=== PATIENT | female | born 1995 | race Caucasian/White ===

== ENCOUNTER → 2020-05-01 13:10 | Observation (INO) | END | disposition home or self-care (01) | LOC: 1NENULAB | PROVIDERS: ADMIT Obstetrics & Gynecology; ATTEND Obstetrics & Gynecology ==

== ENCOUNTER 2020-09-02 07:36 | Inpatient (IN) ==
[2020-09-02] MEDS ORDERED: Metoclopramide 10 MG/2 ML VIAL IVP PRN (08:19)
[2020-09-02] MEDS ORDERED: *HR* Nalbuphine 10 MG/ML AMPUL IV PRN (08:19)
[2020-09-02] MEDS ORDERED: Naloxone 0.4 MG/ML INJ IVP PRN (08:19)
[2020-09-02] MEDS ORDERED: Lidocaine 1% 20 ML MDV INFILT PRN (08:19)
[2020-09-02] MEDS ORDERED: Azithromycin 500 MG in 0.9 % Sodium Chloride 250 ML IVPB PRN (08:19)
[2020-09-02] MEDS ORDERED: Famotidine 20 MG/2 ML VIAL IVP PRN (08:19)
[2020-09-02] MEDS ORDERED: Ondansetron 4 MG/2 ML VIAL IVP PRN (08:19)
[2020-09-02] MEDS ORDERED: Ringers Solution, Lactated 1,000 ML IVC SCH (08:30)
[2020-09-02] MEDS ORDERED: Ropivacaine/PF 0.2% 20 ML VIAL EP ONE (09:28)
[2020-09-02] MEDS ORDERED: *HR* FentaNYL (PF) 100 MCG/2 ML VIAL EP ONE (09:28)
[2020-09-02] MEDS ORDERED: EPHEDrine 50 MG/ML VIAL IVP PRN (09:28)
[2020-09-02] MEDS ORDERED: Epidural Premix (fent/bupiv) 110 ML EP SCH (09:30)
[2020-09-02] MEDS ORDERED: Ropivacaine/PF 0.2% 20 ML VIAL ONE (09:31)
[2020-09-02] MEDS ORDERED: *HR* FentaNYL (PF) 250 MCG/5 ML VIAL ONE (09:31)
[2020-09-02] MEDS: miSOPROStoL 25 MCG TABLET PO PRN ×2 (09:49→13:57)
[2020-09-02 10:10] LABS: Basophils # 0.1 K/mcL (0.0-0.2); Basophils % 0.8 %; Eosinophils # 0.1 K/mcL (0.0-0.6); Eosinophils % 0.5 %; Hematocrit 35.5 % (35.3-44.9); Hemoglobin 11.3 g/dL (11.5-15.4); Immature Granulocytes % 3.8 % (0-4); Lymphocytes # 2.1 K/mcL (0.6-4.6); Lymphocytes % 18.5 %; Mean Corpuscular HGB Conc 31.8 g/dL (31.6-35.5); Mean Corpuscular Hemoglobin 29.4 pg (28.0-33.3); Mean Corpuscular Volume 92.2 fL (83.0-100.0); Mean Platelet Volume 10.2 fL (9.4-12.4); Monocytes # 0.7 K/mcL (0.0-1.3); Monocytes % 5.8 %; Neutrophils # 7.9 K/mcL (1.6-8.9); Platelet Count 192 K/mcL (140-400); Red Blood Count 3.85 M/mcL (3.82-4.97); Red Cell Distribution Width 13.2 % (11.5-14.5); Segmented Neutrophils % 70.6 %; White Blood Count 11.2 K/mcL (4.3-11.1)
[2020-09-02 10:20] LABS: Amphetamine Screen,Urine Negative ng/mL (Cutoff=1000); Barbiturate Screen,Urine Negative ng/mL (Cutoff=200); Benzodiazepines Screen,Urine Negative ng/mL (Cutoff=200); Cannabinoid Screen,Urine Negative ng/mL (Cutoff = 50); Cocaine Screen,Urine Negative ng/mL (Cutoff= 300); Opiate Screen,Urine Negative ng/mL (Cutoff=300); Phencyclidine Screen,Urine Negative ng/mL (Cutoff=25)
[2020-09-02 17:30] LABS: Alanine Aminotransferase 11 Units/L (7-52); Aspartate Amino Transferase 20 Units/L (13-39); BUN/Creatinine Ratio 14 (6-26); Blood Urea Nitrogen 7 mg/dL (6-20); Lactate Dehydrogenase 215 Units/L (140-271); eGFR For African Americans > 60 (> 60); eGFR For Non-African Americans > 60 (> 60)
[2020-09-02 17:44] LABS: Bilirubin,Urine Negative (Negative); Blood,Urine Negative (Negative); Clarity,Urine Clear (Clear); Color,Urine Light-Yellow (Yellow); Glucose,Urine (UA) Normal (Normal); Hyaline Casts,Urine Few per lpf (None Seen); Ketones,Urine 60 mg/dL (Negative); Leukocyte Esterase,Urine Negative (Negative); Mucus,Urine Few per lpf (None-Few); Nitrite,Urine Negative (Negative); Protein,Urine 30 mg/dL (Neg-Trace); RBC,Urine 0-3 per hpf (0-3); Specific Gravity,Urine 1.017 (1.010-1.025); Squamous Epithelial Cell,Urine Few per hpf (None-Few); Urobilinogen,Urine Normal (Normal); WBC,Urine 0-3 per hpf (0-3)
[2020-09-02 17:47] LABS: Protein/Creatinine Ratio,Urine 0.38 mg/mg (0.00-0.20)
[2020-09-03] MEDS ORDERED: *HR* FentaNYL (PF) 100 MCG/2 ML VIAL ONE ×2 (03:45→06:08)
[2020-09-03] MEDS ORDERED: Oxytocin 20 units/ LR 1000 mL 20 UNIT/1,000 ML BAG IVC ONE (08:04)
[2020-09-03] MEDS ORDERED: Measles/Mumps/Rubella Vacc 0.5 ML VIAL SQ PRN (10:01)
[2020-09-03] MEDS ORDERED: Oxytocin 20 units/ LR 1000 mL 20 UNIT/1,000 ML BAG IVC SCH (10:01)
[2020-09-03] MEDS: Prenatal Vit/FA 1 EACH TABLET PO SCH (11:45)
[2020-09-03] MEDS: Ibuprofen 600 MG TABLET PO SCH ×2 (11:46→18:05)
[2020-09-03] MEDS: Acetaminophen 325 MG TABLET PO SCH ×2 (11:46→18:05)
[2020-09-04] MEDS: Acetaminophen 325 MG TABLET PO SCH ×2 (04:54→11:07)
[2020-09-04] MEDS: Ibuprofen 600 MG TABLET PO SCH ×2 (04:54→11:07)
[2020-09-04 07:49] VITALS: BP 117/77
[2020-09-04] MEDS: Prenatal Vit/FA 1 EACH TABLET PO SCH (07:52)
== END 2020-09-04 11:49 | disposition home or self-care (01) | DRG 807 ==
LOC: 1NENULAB 07:36 → 1NENUOBS 09-03 09:32
PROVIDERS: ADMIT Obstetrics & Gynecology; ATTEND Obstetrics & Gynecology